=== PATIENT | male | born 1990 | race Caucasian/White ===

== ENCOUNTER 2016-11-28 03:45 | Emergency (ER) | payer OTHER ==
[~2016-11-28] VITALS: Ht 160 cm; Wt 69.0 kg
[2016-11-28 03:59] VITALS: Ht 160 cm; Wt 69.0 kg
[2016-11-28] MEDS ORDERED: ELIM TOP (04:18)
[2016-11-28 04:25] VITALS: BP 135/98; RESP 18
--- NOTE | 2016-11-28 04:28 | ERA ---
ER Documentation Chief Complaint Date/Time DATE: 11/28/16 TIME: 04:25 Chief Complaint genital lice and itch HPI 26-year-old male presenting with a chief complaint of genital/pubic area itching. Patient has not taken any medications to relieve the symptoms. Patient states that he saw little bugs crawling in the pubic hair. Denies fever , recent antibiotic use, symptomatic close contacts, testicular pain, sexual activity, discharge, dysuria, hematuria, diabetes, pain, or skin openings. Patients vaccination status is up to date. Nursing notes have been reviewed and are consistent with history given. ROS All systems reviewed and are negative except as per history of present illness. Medications Home Meds Active Scripts Permethrin* (Elimite*) 5% Cr, 1 APPLIC TOP ONCE for 1 Day, TUB 1 Refill Prov:MOLLY NICOLE PA-C 11/28/16 Allergies Allergies: Coded Allergies: No Known Allergy (Unverified , 11/28/16) PMhx/Soc History of Surgery: No Anesthesia Reaction: No Hx Neurological Disorder: No Hx Respiratory Disorders: No Hx Cardiac Disorders: No Hx Psychiatric Problems: No Hx Miscellaneous Medical Probl: No Hx Alcohol Use: Yes Hx Substance Use: Yes (MARIJUANA) Hx Tobacco Use: Yes Smoking Status: Smoker,current status unk Physical Exam Vitals Vital Signs Date Time Temp Pulse Resp B/P Pulse Ox O2 Delivery O2 Flow Rate FiO2 11/28/16 03:59 98.8 75 18 147/98 99 Physical Exam Const: Healthy-appearing. Well-nourished. Well-developed. No acute distress. Skin: Scattered maculopapular lesions in the pubic area. No lice visualized Ext: No edema or palpable cord. Normal movement of all extremities grossly observed. Neur: Awake, alert and oriented x3. Neurovascularly intact bilaterally. Oral: No oral edema visualized. Mucous membranes moist and pink. Head: Normocephalic, Atraumatic. Eyes: Non-injected; No discharge. EOMI and CHANO bilaterally. Ears: Normal External Ears, EACs clear, TM normal bilaterally without erythema. Nose: Normal external nose; no discharge, or sinus tenderness. Neck: No cervical lymphadenopathy, masses or goiter palpated. ~ No meningismus. Pulm: Good air movement in upper and lower respiratory tracts. No dyspnea, stridor, tripoding or drooling. Clear to auscultation bilaterally. Cardio: Regular rate and rhythm; No murmurs, gallops or rubs auscultated. No JVD grossly observed. No cyanosis. Capillary refill less than 2 seconds. Abd: Soft, non tender, non distended. No guarding, masses. Normal bowel sounds. MS: Normal motor strength, normal tone with gross examination. Back: No midline, flank or CVA tenderness. Psych: Normal Mood and Affect. Procedures/MDM Patient is presenting with signs and symptoms most consistent with pediculosis. At this time I very little suspicion for molluscum contagiosum, sexual transmitted infection, testicular torsion, or other serious bacterial infection. Most likely diagnosis is radicular versus of genital region. Patient will be treated with outpatient permethrin cream applied once today and again 14 days from now. I have spoke with the patient regarding their condition and future management. They have verbally responded that they understand their status and treatment plan. The patients vitals are stable, and their current condition is appropriate for discharge. The patient will be given discharge instructions with return precautions. Departure Diagnosis: Primary Impression: Pediculosis Condition: Stable Patient Instructions: Lice, Pubic Additional Instructions: Follow up with your PCP within the next 1-3 days for a more thorough evaluation and a possible referral to a specialist. Return the the emergency department immediately if symptoms worsen or change. If you have any questions regarding medications, ask your pharmacist or us before you leave. If any adverse reactions occur while taking your medications, discontinue the treatment and return to the emergency department immediately. Take your medications as directed, and complete the entire course of treatment. MOLLY NICOLE PA-C Nov 28, 2016 04:28
== END 2016-11-28 04:26 | disposition home or self-care (01) ==
LOC: FTE 03:45
DX: B85.2 Pediculosis, unspecified (principal); F17.210 Nicotine dependence, cigarettes, uncomplicated
CPT/HCPCS: 99283